=== PATIENT | female | born 1995 | race African-American/Black ===

== ENCOUNTER 2016-10-10 18:29 | Emergency (ER) | payer OTHER ==
[~2016-10-10] VITALS: Ht 167.6 cm; Wt 54.4 kg
== END 2016-10-10 18:53 | disposition home or self-care (01) ==
LOC: CFTX 18:29 → CED 18:29 → CFTX 18:50
DX: S01.01XD Laceration without foreign body of scalp, subsequent encounter (principal); X58.XXXD Exposure to other specified factors, subsequent encounter
CPT/HCPCS: 99281